=== PATIENT | male | born 1955 | race Caucasian/White ===

== ENCOUNTER 2019-01-13 10:53 | Day surgery (SDC) | payer MEDICARE ==
[2019-01-13] MEDS ORDERED: LACTATED RINGERS 1,000 ML IV ONE ×3 (10:57→12:42)
[2019-01-13] MEDS ORDERED: LIDOCAINE-MPF 2% 5 ML VIAL IM ONE (12:20)
[2019-01-13] MEDS ORDERED: fentaNYL 250 MCG/5 ML VIAL IVP ONE (12:20)
[2019-01-13] MEDS ORDERED: MIDAZOLAM 2 MG/2 ML VIAL IVP ONE (12:20)
[2019-01-13] MEDS ORDERED: PROPOFOL 200 MG/20 ML VIAL IVP ONE (12:20)
[2019-01-13 12:36] VITALS: BP 112/80
== END 2019-01-13 10:54 | disposition home or self-care (01) ==
LOC: SDS 10:53
PROVIDERS: ATTEND Internal Medicine Gastroenterology
PROC: 0DBL8ZZ Excision of Transverse Colon, Via Natural or Artificial Opening Endoscopic (ICD-10-PCS; principal; 2019-01-13 11:45)
DX: Z85.820 Personal history of malignant melanoma of skin (principal); D12.3 Benign neoplasm of transverse colon; I73.00 Raynaud's syndrome without gangrene; F41.9 Anxiety disorder, unspecified; F43.10 Post-traumatic stress disorder, unspecified; Z87.891 Personal history of nicotine dependence
CPT/HCPCS: 45380; J3010; J7120

== ENCOUNTER 2020-10-17 13:25 | Outpatient (CLI) | payer MEDICARE ==
--- OUTSIDE RECORDS SUMMARY | 2020-10-17 13:27 | EXTERNAL MEDICAL SUMMARY RPT | Continuity of Care Document ---
:1955 Demographics Phone Unavailable Preferred Language Unknown Marital Status Unknown Evangelical Affiliation Unknown Race Unknown Ethnic Group Unknown Author Organization [place] Address [address] [phone] Phone Care Team Providers Name Role Phone Mercedes Unavailable Unavailable Allergies date description facility COFFEE (COFFEA ARABICA) [facility] CODEINE [facility] CHOCOLATE [facility]LA[facility] Social History date description facility [phone]
[2020-10-17 14:23] VITALS: BP 131/93
--- NOTE | 2020-10-17 14:23 | SLEEP CARE CONSULTATION ---
Information from patient questionnaire entered by Luz Elena Chavez. I have reviewed and concur with the information entered by Luz Elena Chavez. This document represents the service I personally performed and the decisions made by me, Leela Michelle ARNP. History of Present Illness Service Date and Time: 10/17/2020 1325 Reason for Visit: New patient Chief Complaint: reports: Insomnia, Unrefreshed sleep, Snoring, Excessive daytime sleepiness, Observed pauses in breathing, Fatigue, Frequent awakenings at night Date of Onset: 8 years Usual bedtime: 8 pm Time it takes to fall asleep: quick Snores at night: Yes Observed to quit breathing while asleep: Yes Sleeps alone due to snoring: No Number of times waking at night: 2-10 (most is shifting in bed) Reasons for waking at night: reports: Snoring, Other (dry mouth, sinus pain and draining). denies: Choking, Gasping for air Toss, Turn, or Twitch while sleeping: Yes Recalls having dreams: Yes Usually gets out of bed at: 5:30 am Feels refreshed in the morning: No Morning headache: Yes (daily, varies on severity; last 30 minutes to 24 hrs) Sleepy or fatigued during the day: Yes Ever fallen asleep while driving: No Takes day naps: Yes (4 times a week) Dreams during day naps: No Prior sleep studies: No Additional HPI information: I had the pleasure of seeing MARIO ALBERTO PATIÑO today regarding the possibility of him having a sleep disorder. His current complaints are insomnia, snoring, observed pauses in breathing, frequent night awakenings, unrefreshed sleep, excessive daytime sleepiness and fatigue. He used to sleep 7.5 hours every night without need of an alarm clock. He states several years he has developed some sinus congestion and occasional headaches. His throat is very dry and he coughs up phlegm. He has crusts on his eyes and he is not feeling refreshed after sleeping. He states fresh air and washing his face helps the most. He states taking naps makes him feel worse when he occasionally (1-2 times a week) is able to get a few minutes nap. He snores very loud. He states the snoring is better with use of a chin strap. He states he never feels rested anymore. - Parasomnia Symptoms Ever been unable to move upon waking from sleep: No Walks in sleep: No Talks in sleep: No Ever acted out dreams in sleep: Yes (has PTSD) Ever felt weak in the knees when startled or emotional: Yes Bothered by creepy, crawly, restless sensations in legs: No Problems with memory or concentration: Yes (memory has diminished) Subjective Initial [place] Sleepiness Scale score: 7 (in 2020) Past Medical History Past Medical History: reports: Anxiety, Mood disorder (PTSD), Attention deficit (ADHD). denies: Hypertension, Diabetes, Arrythmia, Depression, GERD Social History The patient's occupation is a Retired. Patient is and lives in [place]. Have you smoked in the past 12 months: No Cigarettes per day (20/pack): 30 (20-40 ) Years of smokin Quit date: 1995 Smoking Pack Years: 30.0 Alcohol use: No Caffeine use: Yes Caffeine amount and frequency: 2-3 cups a day Family History Family history of sleep disordered breathing: No Family Hx Sleep Apnea: Sibling: Snoring Allergies and Home Medications Drug allergies reviewed: Yes (NKDA) Home medication list reviewed: Yes Allergy and home medication list: Alprazolam 0.25 mg x 3 Review of Systems Cardiovascular: denies: high blood pressure, irregular heart rate or pulse Respiratory: reports: sputum production Gastrointestinal: denies: heartburn Neurological: reports: headaches Psychiatric: reports: Attention Deficit Hyperactivity, anxiety Ear/Nose/Throat: reports: nasal congestion, sinus problems, dry mouth/throat, tonsillectomy Immunologic: reports: sneezing, itching, allergies to food or environment Physical Exam Blood Pressure: 131/93 Cuff size: wrist Heart Rate: 73 O2 Saturation: 98 Height: 5 ft 11 in Weight: 183 lb Body Mass Index: 25.5 BMI Classification: Overweight Neck circumference: 15.5 Nostrils: patent to airflow Turbinates: normal Septum: midline Mouth and throat: normal Soft palate: long Hard palate: normal Uvula: normal Uvula visualization: 100% Mallampati Class I Tongue: normal in size Tonsils: absent bilaterally Chin and jaw: normal size and position Neck: normal w/o lymphadenopathy or thyromegaly Heart: regular rate and rhythm Lungs: clear bilaterally Impression and Plan 1. Suspected Obstructive Sleep Apnea-Hypopnea Syndrome, as suggested by a history of loud and irregular snoring, observed cessation of breath while asleep, morning headache, frequent awakening during the night, unrefreshed sleep, cognitive impairment, and excessive daytime sleepiness. I reviewed with patient that a narrow oropharynx and obesity are common predisposing factors for obstructive sleep apnea-hypopnea syndrome. I recommend proceeding to polysomnography to confirm the diagnosis and to assess severity. If the patient has significant sleep disordered breathing, a manual CPAP titration study will also be performed to find the optimal treatment pressure. I informed the patient of what the sleep studies involve and after some discussion, obtained agreement to proceed. The pathophysiology of obstructive sleep apnea-hypopnea syndrome was discussed with the patient and health risks of cardiovascular and cerebrovascular disease if not treated. AAS brochure for obstructive sleep apnea-hypopnea syndrome given and reviewed. Risks of drowsy driving discussed in detail and patient advised to avoid long distance driving and to rod puller and coiler at the first sign of drowsiness. Patient agreed to plan. * Schedule polysomnography +- manual CPAP titration study and return in 1-2 weeks after the study to discuss result and initiate therapy. * Avoid long distance driving or driving when feeling sleepy. * Avoid alcohol, sedative and muscle relaxant around bedtime. * Attempt to lose weight. * Review instructions provided by trained office staff on how to prepare for the sleep study. * Return for follow-up after sleep study completed. Counseling Topics: Weight loss health impact Visit Type: In Office Time Spent with Patient (minutes): 31 Provider Statement: I spent 100% of the Face to Face Visit with the patient with greater than 50% spent counseling the patient and coordination of care.
== END 2020-10-17 13:26 | disposition home or self-care (01) ==
LOC: SC 13:25
PROVIDERS: ATTEND Nurse Practitioner Family
DX: G47.10 Hypersomnia, unspecified (principal); R41.89 Other symptoms and signs involving cognitive functions and awareness; G47.8 Other sleep disorders; R51.9 Headache, unspecified; R06.81 Apnea, not elsewhere classified; R06.83 Snoring; E66.3 Overweight; Z68.25 Body mass index [BMI] 25.0-25.9, adult
CPT/HCPCS: 99203; G0463; 99212

== ENCOUNTER 2020-12-06 07:00 | Outpatient (CLI) | payer MEDICARE ==
--- NOTE | 2020-12-06 09:04 | Ultrasound Report ---
PROCEDURE: Aorta Screening INDICATIONS: SCREENING FOR CARDIOVASCULAR DISORDERS TECHNIQUE: Real time scanning was performed of the aorta and iliac arteries, with image documentatio n. COMPARISON: None. FINDINGS: Aorta: Proximal aortic diameter measures 2.5 x 2.2 cm. Mid-aorta measures 2.1 x 1.7 cm. Distal aor tic diameter is 1.8 x 1.9 cm. Iliac arteries: Right common iliac artery measures 1.2 x 1.3 cm. Left common iliac artery measures 1 x 1.3 cm. IMPRESSION: No abdominal aortic aneurysm or, and iliac artery aneurysm. Reviewed by: Hernesto Olivier MD on 12/06/2020 9:02 AM PST Approved by: Hernesto Olivier MD on 12/06/2020 9:02 AM PST Station ID: [id number]
== END 2020-12-06 07:01 | disposition home or self-care (01) ==
LOC: DI 07:00
PROVIDERS: ATTEND Internal Medicine
DX: Z13.6 Encounter for screening for cardiovascular disorders (principal)

== ENCOUNTER 2020-12-14 09:05 | Outpatient (CLI) | payer MEDICARE | END 2020-12-14 09:06 | disposition home or self-care (01) | LOC: SC 09:05 | PROVIDERS: ATTEND Nurse Practitioner Family | DX: G47.33 Obstructive sleep apnea (adult) (pediatric) (principal); E66.3 Overweight; Z68.25 Body mass index [BMI] 25.0-25.9, adult | CPT/HCPCS: G0399 ×2; 95806 ==

== ENCOUNTER 2020-12-26 08:46 | Outpatient (CLI) | payer MEDICARE ==
--- NOTE | 2020-12-26 09:15 | SLEEP CARE CONSULTATION ---
Information from patient questionnaire entered by Luz Elena Chavez. I have reviewed and concur with the information entered by Luz Elena Chavez. This document represents the service I personally performed and the decisions made by , Leela Michelle ARNP. History of Present Illness Service Date and Time: 12/26/2020 0846 Initial [place] Sleepiness Scale score: 7 (in 2020) Current [place] Sleepiness Scale score: 7 Additional HPI information: MARIO ALBERTO PATIÑO returns for follow up and results of the recently performed home sleep study. I explained the pathophysiology behind obstructive sleep apnea. We then spent quite a bit of time discussing different treatment options. For mild obstructive sleep apnea, surgery and oral appliance are alternatives to nasal CPAP therapy but in moderate or severe cases, nasal CPAP is the most effective and reliable treatment. Because apnea is primarily in supine position, then positional management therapy could be effective. Methods discussed such as positioning with pillows, using a T-shirt with tennis balls in the back, and shown commercial products that have a pillow format on back to prevent supine sleep. I reviewed the impact of weight changes on sleep apnea and strongly recommended losing weight. After some discussion, the patient opted to go with the nasal CPAP therapy. Nasal autoCPAP set at 4-15 cmH20 will be ordered with rationale explained. A manual titration study will be ordered if unable to find optimal pressure with office adjustments. I explained how CPAP machine works with sample devices Resp[employer]ics Dreamstation and [employer] Tablet Themes [id number] and what to expect when using the machine. Using CPAP every night in order to get used to it was emphasized. Patient advised to put CPAP mask on before getting into bed so as not to fall asleep without CPAP. To assist acclimation to CPAP use, it could also be used for a short time during day while reading or watching TV. The patient was instructed to call the CPAP supplier to discuss any mechanical problem that may occur. If the mask given is uncomfortable or is difficult to keep on through the night even with adjustment, contact the CPAP supplier as many will replace with another mask style if notified before 30 days. If snoring or perceives is not getting enough air or too much air from the machine, notify this office. AAS patient education PAP tips reviewed and given to patient. Patient does not drink alcohol. Patient was cautioned about risks of drowsy driving until sleepiness symptoms resolve. Sleep Study - Results Type of Sleep Study: Home sleep study Prior sleep studies: No - Discussion Sleep Study discussion: Physician Impression: The quality of the study is good. The length of the study is adequate (> 240 minutes). Please also see the tabulated and graphic data. 1. Obstructive Sleep Apnea-Hypopnea (ICD-10 G47.33), mild, with an AHI of 11.3 /hr and marisabel SaO2 of 87%. During the study, the patient had 92 apneas (92 obstructive, 0 central, 0 mixed) and 17 hypopneas. The longest episode lasted 77.0 seconds. The respiratory events occurred almost exclusively during supine sleep (supine AHI was 24.2 and non-supine, 1.81). 2. Hypoxemia (ICD-10 R09.02), minimal, with the lowest oxygen saturation of 87 % and 0.8 minutes with SaO2 under 90%. Baseline oxygen saturation was normal (Average oxygen saturation was 94%). Allergies and Home Medications Home medication list reviewed: Yes (alprazolam for anxiety) Review of Systems Review of systems same as previous: No (anxiety) Physical Exam Heart Rate: 59 O2 Saturation: 91 Height: 5 ft 11 in Weight: 184 lb Body Mass Index: 25.7 BMI Classification: Overweight Impression and Plan 1. Obstructive Sleep Apnea-Hypopnea Syndrome, mild, with lowest oxygen saturation of 87%. Obviously this is the cause of the patients symptoms of unrefreshed sleep, and excessive daytime sleepiness. Positive pressure therapy could benefit anxiety. As mentioned above, the patient will be started on nasal autoCPAP therapy with pressure set at 4-15 cmH2O. A manual titration study will be completed if unable to find optimal treatment pressure with office adjustments. Compliance guidelines also reviewed. A copy of compliance guidelines will be given for reference at check out. Because the apnea is more severe supine, I instructed to avoid sleeping supine using pillow positioning until able to start CPAP use. * Nasal auto CPAP therapy, pressure at 4-15 cm H2O. * Attempt to lose weight. * Avoid alcohol consumption near bedtime. * Avoid supine sleep until using CPAP. * The patient is again cautioned about driving until sleepiness completely resolves. * Return one month after CPAP obtained. I will assess response to therapy and compliance at that time. Counseling Topics: Weight loss health impact Visit Type: In Office Time Spent with Patient (minutes): 22 Provider Statement: I spent 100% of the Face to Face Visit with the patient with greater than 50% spent counseling the patient and coordination of care.
== END 2020-12-26 08:47 | disposition home or self-care (01) ==
LOC: SC 08:46
PROVIDERS: ATTEND Nurse Practitioner Family
DX: G47.33 Obstructive sleep apnea (adult) (pediatric) (principal); R09.02 Hypoxemia; E66.3 Overweight; Z68.25 Body mass index [BMI] 25.0-25.9, adult
CPT/HCPCS: 99213; G0463; 99212

== ENCOUNTER 2021-02-26 09:02 | Outpatient (CLI) | payer MEDICARE ==
--- NOTE | 2021-02-26 09:40 | SLEEP CARE CONSULTATION ---
Information from patient questionnaire entered by Luz Elena Chavez. I have reviewed and concur with the information entered by Luz Elena Chavez. This document represents the service I personally performed and the decisions made by , Leela Michelle ARNP. History of Present Illness Service Date and Time: 02/26/2021 0902 Previous diagnosis: Mild, Obstructive Sleep Apnea-Hypopnea Syndrome AHI: 11.3 (in 2020) Reason for follow up: first compliance Equipment type: CPAP Equipment obtained from: [facility] (got initial supplies) Mask style: Full face Backup mask available: Yes (other mask) Last cushion change: 7-10 days Prior sleep studies: Yes Year and Where: [address] - [facility] Sleep Type of Sleep Study: Home sleep study HPI additional information: MARIO ALBERTO PATIÑO was diagnosed to have mild, AHI 11.3, obstructive sleep apnea- hypopnea syndrome and returned today for CPAP therapy first compliance follow- up. CPAP Compliance Data - Data Reviewed with Patient Average duration of nightly device use: 5 hr 3 min Compliance rate %: 53 Current pressure setting (cmH2O): 4-15 (median 9.7, avg 13.9, max 14.3) Humidity settin Average residual AHI: 10.8 Central apnea: 2.7 Obstructive apnea: 5.8 Subjective Missed days of use due to: reports: mask issues Patient concerns: reports: mask discomfort (satisfied with mask fit), air blowi ng in eyes, mask leak noise, condensation in mask/hose (couple of times), dry mouth, nose, throat. denies: aerophagia, nasal congestion, epistaxis, other Observed to snore while using device: No Current pressure setting perceived as: comfortable On therapy, patient: reports: sleeping better, awakening more refreshed, being more awake and alert during the day, more rested overall, other (reduced headaches and less dry respiratory system). denies: drowsiness while driving Initial [place] Sleepiness Scale score: 7 (in 2020) Current [place] Sleepiness Scale score: 6 Allergies and Home Medications Home medication list reviewed: Yes (no changes) Review of Systems Review of systems same as previous: Yes (no changes) Physical Exam Heart Rate: 68 O2 Saturation: 91 Height: 5 ft 11 in Weight: 181 lb Body Mass Index: 25.2 BMI Classification: Overweight Impression and Plan 1. Obstructive Sleep Apnea-Hypopnea Syndrome, mild, with fair treatment compliance and fair apnea control with elevated residual AHI. On CPAP therapy, the patient has better sleep quality and is more rested overall. He has not had a morning headache since starting the CPAP therapy and his "respiratory dryness" has improved. I will adjust the pressure to reflect pressures he is using and to reduce his AHI, the pressure setting will be changed to 11-15 cmH2O. He has been experiencing mask leaks when laying on his side and he would rather sleep in that position. Mask leaks can be reduced by washing mask daily and changing mask cushions more frequently to improve mask seal and comfort. Additionally, mask leaks predominately from when patient sleeps on their side can be reduced by using a CPAP pillow. A CPAP pillow sample was shown. This and other styes can be purchased online. He does have some oral dryness but states it is better since starting CPAP therapy. Oral dryness can be reduced by adjusting humidity setting higher or heated hose lower or by adjusting both settings. Verbal instructions given on how to change humidity and heated hose settings with rationale explaining why to change. Patient's apnea severity and rationale for treatment to reduce apnea, improve sleep quality and reduce cardiovascular and cerebrovascular events was reviewed. I also reviewed the benefit of consistent device use of CPAP for anxiety. * Change auto CPAP pressure to 11-15 cmH2O * Notify me if snoring with mask or feeling that the pressure is too much or too little * Attempt to lose weight * Call this office if any problems using CPAP * Return for follow up in 1-2 months, or sooner if concerns arise Counseling Topics: Spare mask, Weight loss health impact Visit Type: In Office Time Spent with Patient (minutes): 25 Provider Statement: I spent 100% of the Face to Face Visit with the patient with greater than 50% spent counseling the patient and coordination of care.
== END 2021-02-26 09:03 | disposition home or self-care (01) ==
LOC: SC 09:02
PROVIDERS: ATTEND Nurse Practitioner Family
DX: G47.33 Obstructive sleep apnea (adult) (pediatric) (principal); E66.3 Overweight; Z68.25 Body mass index [BMI] 25.0-25.9, adult
CPT/HCPCS: 99213; G0463; 99212

== ENCOUNTER 2021-04-02 09:10 | Outpatient (CLI) | payer MEDICARE ==
--- NOTE | 2021-04-02 09:54 | SLEEP CARE CONSULTATION ---
Information from patient questionnaire entered by Luz Elena Chavez. I have reviewed and concur with the information entered by Luz Elena Chavez. This document represents the service I personally performed and the decisions made by , Leela Michelle ARNP. History of Present Illness Service Date and Time: 04/02/2021 0910 Previous diagnosis: Mild, Obstructive Sleep Apnea-Hypopnea Syndrome AHI: 11.3 (in 2020) Reason for follow up: one month (with pressure change) Equipment type: CPAP Equipment obtained from: [facility] (getting supplies as needed) Mask style: Full face Backup mask available: Yes (old mask) Last cushion change: rotating through three mask with cleaning Prior sleep studies: Yes Year and Where: [address] [facility] Sleep Type of Sleep Study: Home sleep study HPI additional information: MARIO ALBERTO PATIÑO was diagnosed to have mild, AHI 11.3, obstructive sleep apnea- hypopnea syndrome and returned today for CPAP therapy one month with pressure change follow-up. CPAP Compliance Data - Data Reviewed with Patient Average duration of nightly device use: 5 hr 8 min Compliance rate %: 37 Current pressure setting (cmH2O): 8-12 (median 11.8, avg 13.4, max 13.7) Humidity settin Average residual AHI: 13.0 Central apnea: 5.1 Obstructive apnea: 5.0 Subjective Missed days of use due to: reports: mask issues (he is taking his mask off at night. when seal breaks on the mask it wakes him up) Patient concerns: reports: aerophagia, air blowing in eyes, mask leak noise, dry mouth, nose, throat, other (snore while using device). denies: mask discomfort, condensation in mask/hose, nasal congestion, epistaxis Observed to snore while using device: Yes Current pressure setting perceived as: comfortable On therapy, patient: reports: sleeping better, awakening more refreshed, being more awake and alert during the day, more rested overall. denies: drowsiness while driving Initial [place] Sleepiness Scale score: 7 (in 2020) Current [place] Sleepiness Scale score: 8 Allergies and Home Medications Home medication list reviewed: Yes (no changes) Review of Systems Review of systems same as previous: Yes (no changes) Physical Exam O2 Saturation: 98 Height: 5 ft 11 in Weight: 176 lb Body Mass Index: 24.5 BMI Classification: Healthy weight Impression and Plan 1. Obstructive Sleep Apnea-Hypopnea Syndrome, mild, with poor treatment compliance and fair apnea control. On CPAP therapy, the patient has better sleep quality and is more rested overall. The patients pressure will be changed to autoCPAP 10-11 cmH20 for elevation of residual AHI with elevated central apneas. I also think it would be advantageous to try a titration study since he seems to get more centrals with higher pressures. He is willing to have a titration study done. Patient advised to contact me if pressure change is uncomfortable so that it can be adjusted. Goals for apnea control discussed. Patient having multiple mask issues. He is taking it off during the night because it is waking him up due to the seal getting broke on full face mask. He did obtain a chinstrap because he is still getting some oral dryness because he will open his mouth and breathe through his mouth while in the mask. He was not sure he wanted to continue with the treatment, we discussed a change to a nasal mask with a chinstrap that might be more comfortable for him and less hassle at [facility]. He is willing to try this. I will write for a mask refitting for a nasal mask to use with a chinstrap. Patient's apnea severity and rationale for treatment to reduce apnea, improve sleep quality and reduce cardiovascular and cerebrovascular events was reviewed. I also reviewed the benefit of consistent device use of CPAP for anxiety. * Titration study * Change auto CPAP pressure to [id number] * Mask refitting * Notify me if snoring with mask or feeling that the pressure is too much or too little * Maintain a healthy weight * Call this office if any problems using CPAP * Return for follow up in 1-2 months, or sooner if concerns arise Counseling Topics: Spare mask, Weight control Visit Type: In Office Time Spent with Patient (minutes): 24 Provider Statement: I spent 100% of the Face to Face Visit with the patient with greater than 50% spent counseling the patient and coordination of care.
== END 2021-04-02 09:11 | disposition home or self-care (01) ==
LOC: SC 09:10
PROVIDERS: ATTEND Nurse Practitioner Family
DX: G47.33 Obstructive sleep apnea (adult) (pediatric) (principal)
CPT/HCPCS: 99213; G0463; 99212

== ENCOUNTER 2022-04-23 08:42 | Outpatient (CLI) | payer MEDICARE ==
--- NOTE | 2022-04-23 09:36 | CT Report ---
PROCEDURE: Sinuses INDICATIONS: RIGHT KNEE PAIN, HEADACHE TECHNIQUE: Noncontrast 3.0 mm axial images acquired from the frontal sinuses to the mid-sella, with coronal and sagittal reformats. For radiation dose reduction, the following was used: automated exposure control , adjustment of mA and/or kV according to patient size. COMPARISON: None. FINDINGS: Image quality: Excellent. Maxillary Sinuses: No bony remodeling or destruction. Sinuses are clear. Ethmoid Air Cells: No bony remodeling or destruction. Sinuses are clear. Sphenoid Sinuses: No bony remodeling or destruction. Mild mucosal thickening of the left sphenoid si nus. Frontal Sinuses: No bony remodeling or destruction. Sinuses are clear. Ostiomeatal Complexes: The right ostiomeatal unit is partially occluded. No Ami cells. Miscellaneous: Visualized intra-orbital contents are normal. Small gavin bullosa in the right middl e turbinate.. No nasal septal deviation. IMPRESSION: 1. Overall no significant sinus disease. 2. Mild mucosal thickening of the left sphenoid sinus. 3. 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 4. Small gavin bullosa right middle turbinate. Reviewed by: Lonny Bustillos on 04/23/2022 9:35 AM PDT Approved by: Lonny Bustillos on 04/23/2022 9:35 AM PDT Station ID: [id number]
--- NOTE | 2022-04-23 09:37 | XRAY Report ---
PROCEDURE: Knee 3 View RT INDICATIONS: RIGHT KNEE PAIN, HEADACHE TECHNIQUE: 3 views of the right knee(s) were acquired. COMPARISON: None. FINDINGS: Bones: No fractures or dislocations. No suspicious bony lesions. Soft tissues: No joint effusion. No suspicious soft tissue calcifications. IMPRESSION: Normal right knee Reviewed by: Lonny Bustillos on 04/23/2022 9:36 AM PDT Approved by: Lonny Bustillos on 04/23/2022 9:36 AM PDT Station ID: [id number]
== END 2022-04-23 08:43 | disposition home or self-care (01) ==
LOC: DI 08:42
PROVIDERS: ATTEND Internal Medicine
DX: M25.561 Pain in right knee (principal); R51.9 Headache, unspecified

== ENCOUNTER 2023-09-08 07:03 | Day surgery (SDC) | payer MEDICARE ==
[2023-09-08] MEDS ORDERED: LACTATED RINGERS 1,000 ML IV ONE ×2 (07:30→09:28)
[2023-09-08] MEDS ORDERED: ALPRAZolam 0.25 MG TABLET PO STA (07:37)
[2023-09-08] MEDS ORDERED: ALPRAZolam 0.25 MG TABLET PO ONE (08:02)
--- NOTE | 2023-09-08 08:24 | ANESTHESIA ---
Pre-Anesthesia VS, & Labs - Diagnosis history of polyps - Procedure colonoscopy Vital Signs: Temp Pulse Resp BP Pulse Ox O2 Flow Rate 36.5 C 67 21 143/76 H 100 09/08/23 07:30 09/08/23 07:30 09/08/23 07:30 09/08/23 07:30 09/08/23 07:30 Height: 5 ft 11 in Weight (kg): 81.6 kg Body Mass Index: 25.0 BMI Classification: Overweight - NPO Other (prep as directed) Home Medications and Allergies ALPRAZolam [Alprazolam] 1 tab PO DAILY 01/12/19 Allergies/Adverse Reactions: Allergies Allergy/AdvReac Type Severity Reaction Status Date / Time No Known Drug Allergies Allergy Verified 08/25/13 13:27 Anes History & Medical History - Anesthetic History Anesthesia Complications: reports: No previous complications - Medical History Cardiovascular: reports: None Pulmonary: reports: None Gastrointestinal: reports: None Urinary: reports: None Musculoskeletal: reports: None, Osteoarthritis Endocrine/Autoimmune: reports: None Skin: reports: Other Smoking Status: Former smoker History of Cancer?: No - Surgical History General: reports: Colonoscopy Orthopedic: reports: Other Dermatologic: reports: Skin cancer surgery Exam General: Alert, Oriented x3 Dental: WNL Neck Mobility: Normal Mallampati classification: II Thyromental Distance: 4-6 cm Respiratory: Lungs clear Cardiovascular: Regular rate Plan Anesthesia Type: Total IV Consent for Procedure(s) Verified and Reviewed: Yes Code Status: Attempt Resuscitation ASA classification: 2-Mild systemic disease Is this case an emergency?: No
[2023-09-08] MEDS ORDERED: PROPOFOL 500 MG/50 ML 500 MG/50 ML VIAL ONE (08:35)
[2023-09-08 09:55] VITALS: BP 105/81; O2SAT 100
--- NOTE | 2023-09-08 10:02 | ANESTHESIA POST OP EVALUATION ---
Anesthesia Post Eval - Post Anesthesia Eval Vitals: Last Vital Signs Temp 36.5 C 09/08/23 09:34 Pulse 72 09/08/23 09:44 Resp 18 09/08/23 09:44 BP 105/81 H 09/08/23 09:44 Pulse Ox 100 09/08/23 09:44 O2 Flow Rate CV Function Including HR & BP: Stable Pain Control: Satisfactory Nausea & Vomiting: Negative Mental Status: Baseline Respiratory Status: Airway Patent Hydration Status: Satisfactory Anesthesia Complications: None
== END 2023-09-08 07:04 | disposition home or self-care (01) ==
LOC: SDS 07:03
PROVIDERS: ATTEND Surgery
PROC: 0DBL8ZX Excision of Transverse Colon, Via Natural or Artificial Opening Endoscopic, Diagnostic (ICD-10-PCS; 2023-09-08)
PROC: 0DBH8ZX Excision of Cecum, Via Natural or Artificial Opening Endoscopic, Diagnostic (ICD-10-PCS; 2023-09-08)
PROC: 0DBK8ZX Excision of Ascending Colon, Via Natural or Artificial Opening Endoscopic, Diagnostic (ICD-10-PCS; principal; 2023-09-08 08:30)
DX: D12.0 Benign neoplasm of cecum (principal); D12.3 Benign neoplasm of transverse colon; D12.2 Benign neoplasm of ascending colon; K64.8 Other hemorrhoids; Z87.891 Personal history of nicotine dependence
CPT/HCPCS: 45380; A9270; J7120

== ENCOUNTER 2024-04-20 11:02 | Outpatient (CLI) | payer MEDICARE | END 2024-04-20 11:03 | disposition home or self-care (01) | LOC: DI.N 11:02 | PROVIDERS: ATTEND Family Medicine | DX: Z53.9 Procedure and treatment not carried out, unspecified reason (principal) ==

== ENCOUNTER 2024-04-21 07:49 | Outpatient (CLI) | payer MEDICARE ==
--- NOTE | 2024-04-21 13:32 | XRAY Report ---
PROCEDURE: Wrist 3+V LT INDICATIONS: L WRIST PAIN TECHNIQUE: 3 views of the wrist were acquired. COMPARISON: None. FINDINGS: Bones: No fractures or dislocations. No suspicious bony lesions. Soft tissues: No suspicious soft tissue calcifications or masses. IMPRESSION: No acute bony abnormality. Reviewed by: Shahana Palomino MD on 04/21/2024 1:30 PM PDT Approved by: Shahana Palomino MD on 04/21/2024 1:30 PM PDT Station ID: [id number]
== END 2024-04-21 07:50 | disposition home or self-care (01) ==
LOC: DI.N 07:49
PROVIDERS: ATTEND Family Medicine
DX: M25.532 Pain in left wrist (principal); G56.22 Lesion of ulnar nerve, left upper limb